=== PATIENT | male | born 1960 | race African-American/Black ===

== ENCOUNTER 2018-06-22 18:43 | Emergency (ER) | payer SELFPAY ==
[~2018-06-22] VITALS: Ht 167.6 cm; Wt 42.6 kg
[2018-06-22] MEDS ORDERED: Ketorolac 30mg Inj IV ONE (19:15)
[2018-06-22 20:00] VITALS: BP 127/84
[2018-06-22 20:09] LABS: ANION GAP 8 mmol/L (5-15); BLOOD UREA NITROGEN 12 mg/dL (7-18); CALCIUM 8.9 MG/DL (8.5-10.1); CARBON DIOXIDE 29 MMOL/L (21-32); CHLORIDE 101 MMOL/L (98-107); CREATININE 0.8 MG/DL (0.55-1.30); POTASSIUM 3.9 MMOL/L (3.5-5.1); SODIUM 138 MMOL/L (136-145)
[2018-06-22 20:13] LABS: ALANINE AMINOTRANSFERASE 21 U/L (12-78); ALBUMIN 3.5 G/DL (3.4-5.0); ALBUMIN/GLOBULIN RATIO 0.7 (1.0-2.7); ALKALINE PHOSPHATASE 68 U/L (46-116); ASPARTATE AMINO TRANSFERASE 17 U/L (15-37); BILIRUBIN,TOTAL 0.9 MG/DL (0.2-1.0)
[2018-06-22 20:43] LABS: EOSINOPHILS % (AUTO) 0.3 % (0.0-3.0); HEMATOCRIT 42.7 % (42.0-52.0); HEMOGLOBIN 13.8 G/DL (14.2-18.0); LYMPHOCYTES % (AUTO) 10.3 % (20.0-45.0); MEAN CORPUSCULAR VOLUME 85 FL (80-99); MONOCYTES % (AUTO) 10.1 % (1.0-10.0); NEUTROPHILS % (AUTO) 78.4 % (45.0-75.0); PLATELET COUNT 153 K/UL (150-450); RED BLOOD COUNT 5.01 M/UL (4.70-6.10); RED CELL DISTRIBUTION WIDTH 11.7 % (11.6-14.8); WHITE BLOOD COUNT 10.4 K/UL (4.8-10.8)
--- NOTE | 2018-06-22 21:29 | Diagnostic Imaging Report ---
EXAM: CT Abdomen and Pelvis With Intravenous Contrast CLINICAL HISTORY: ABD PAIN TECHNIQUE: Axial computed tomography images of the abdomen and pelvis with intravenous contrast. CTDI is 0.15, 7.78 mGy and DLP is 355 mGy-cm. One or more of the following dose reduction techniques were used: automated exposure control, adjustment of the mA and/or kV according to patient size, use of iterative reconstruction technique. COMPARISON: No relevant prior studies available. FINDINGS: Lung bases: Centrilobular emphysema. ABDOMEN: Liver: Subcentimeter hypodensity within the left hepatic lobe, which is nonspecific. Gallbladder and bile ducts: Unremarkable. Pancreas: Unremarkable. Spleen: Unremarkable. Adrenals: Unremarkable. Kidneys and ureters: Probable tiny cysts seen within both kidneys. Stomach and bowel: Moderate amount of stool and gas noted throughout the colon. No bowel obstruction. PELVIS: Appendix: Appendix is unremarkable. Bladder: Unremarkable. Reproductive: Unremarkable as visualized. ABDOMEN and PELVIS: Intraperitoneal space: Unremarkable. Bones/joints: Age-indeterminate compression deformity of L4 with approximately 50% height loss. There is approximately 6 mm of retropulsion or canal which causes moderate stenosis. No dislocation. Soft tissues: Unremarkable. Vasculature: Unremarkable. No abdominal aortic aneurysm. Lymph nodes: Unremarkable. IMPRESSION: 1. Moderate amount of stool and gas noted throughout the colon. No bowel obstruction. 2. Age-indeterminate compression deformity of L4 with approximately 50% height loss. There is approximately 6 mm of retropulsion or canal which causes moderate stenosis.
[2018-06-22 22:00] VITALS: BP 122/80
--- NOTE | 2018-06-22 23:11 | Emergency Room Report ---
History of Present Illness General Chief Complaint: Back Pain-No Injury Present Illness HPI Patient is a 57-year-old male who presented after increased low back pain. Patient been noted be at facility and was having increased difficulty with ambulation. Patient had some prior history of chronic back pain. The patient was noted be markedly poor historian and gives multiple different stories of how back pain began. The patient was noted to have increased had difficulty standing. (Choco Barreto MD) Allergies: Coded Allergies: No Known Allergies (Unverified , 06/22/18) Patient History Past Medical History: see triage record Reviewed Nursing Documentation: PMH: Agreed; PSxH: Agreed (Choco Barreto MD) Review of Systems All Other Systems: limited - bny (Choco Barreto MD) Physical Exam Vital Signs Date Time Temp Pulse Resp B/P (MAP) Pulse Ox O2 Delivery O2 Flow Rate FiO2 06/22/18 18:39 98.0 84 18 127/84 97 Room Air 98.1 Sp02 EP Interpretation: reviewed, normal General Appearance: normal inspection, no apparent distress, alert, GCS 15, Chronically Ill Head: atraumatic ENT: normal ENT inspection, hearing grossly normal, normal voice Neck: normal inspection, full range of motion, supple, no bony tend Respiratory: normal inspection, lungs clear, normal breath sounds, no respiratory distress, no retraction, no wheezing Cardiovascular #1: regular rate, rhythm, no edema Gastrointestinal: normal inspection, normal bowel sounds, non tender, soft, no guarding, no hernia Genitourinary: no CVA tenderness Musculoskeletal: normal inspection, decreased range of motion Neurologic: normal inspection, alert, oriented x3, responsive, silver miner III-XII nml as tested, speech normal Psychiatric: judgement/insight normal Skin: normal inspection, normal color, no rash (Choco Barreto MD) Medical Decision Making Diagnostic Impression: Primary Impression: Closed compression fracture of L4 lumbar vertebra Qualified Codes: S32.040A - Wedge compression fracture of fourth lumbar vertebra, initial encounter for closed fracture Additional Impression: Schizophrenia Qualified Codes: F20.9 - Schizophrenia, unspecified ER Course Patient presented for back pain. Differential diagnosis included but was not limited to herniated disc, cauda equina syndrome, abdominal aortic aneurysm, perforated ulcer, spinal epidural abscess, spinal stenosis, lumbar fracture, metastatic lesion, pyelonephritis. . Labs Test 06/22/18 19:44 White Blood Count 10.4 K/UL (4.8-10.8) Red Blood Count 5.01 M/UL (4.70-6.10) Hemoglobin 13.8 G/DL (14.2-18.0) Hematocrit 42.7 % (42.0-52.0) Mean Corpuscular Volume 85 FL (80-99) Mean Corpuscular Hemoglobin 27.6 PG (27.0-31.0) Mean Corpuscular Hemoglobin Concent 32.3 G/DL (32.0-36.0) Red Cell Distribution Width 11.7 % (11.6-14.8) Platelet Count 153 K/UL (150-450) Mean Platelet Volume 7.0 FL (6.5-10.1) Neutrophils (%) (Auto) 78.4 % (45.0-75.0) Lymphocytes (%) (Auto) 10.3 % (20.0-45.0) Monocytes (%) (Auto) 10.1 % (1.0-10.0) Eosinophils (%) (Auto) 0.3 % (0.0-3.0) Basophils (%) (Auto) 1.0 % (0.0-2.0) Sodium Level 138 MMOL/L (136-145) Potassium Level 3.9 MMOL/L (3.5-5.1) Chloride Level 101 MMOL/L (98-107) Carbon Dioxide Level 29 MMOL/L (21-32) Anion Gap 8 mmol/L (5-15) Blood Urea Nitrogen 12 mg/dL (7-18) Creatinine 0.8 MG/DL (0.55-1.30) Estimat Glomerular Filtration Rate > 60 mL/min (>60) Glucose Level 114 MG/DL (74-106) Calcium Level 8.9 MG/DL (8.5-10.1) Total Bilirubin 0.9 MG/DL (0.2-1.0) Aspartate Amino Transf (AST/SGOT) 17 U/L (15-37) Alanine Aminotransferase (ALT/SGPT) 21 U/L (12-78) Alkaline Phosphatase 68 U/L (46-116) Total Protein 8.6 G/DL (6.4-8.2) Albumin 3.5 G/DL (3.4-5.0) Globulin 5.1 g/dL Albumin/Globulin Ratio 0.7 (1.0-2.7) Lipase 58 U/L (73-393) (Choco Barreto MD) ER Course Please see above note from Dr. Barreto. Patient states he fell from ground level. Apparently not ambulating at [facility]. C/O back pain. Non-focal neuro - LE 5/5 flex and extend of feet. Decreased ankle jerks bilat feet. Sens intact bilat. See CT results. Discussing with [facility] regarding transfer for Spine/Neurosurgery. Not have specialist. Contact [facility] - "capacity". Signed out to Dr. Shaver. (Cuco Che M.D.) ER Course Please refer to the initial note for the initial complaints and presentation After prolonged observation in the emergency room We were able to get a hold of the patient's regional service manager at the facility that he lives in He reports that the patient has problems with methamphetamine He has had multiple hospital visits for the same complaint of having injury to his lower back He also reports that the patient appears to be at his baseline mobility and muscle skeletal movement Patient at this time also has done significantly better and is ambulatory CT imaging did show some nonspecific findings as far as the timing of the acuity Patient is provided with report of the imaging and requires outpatient consult There are no neurological deficits or sensory deficits requiring emergency neurosurgical intervention Labs Test 06/22/18 19:44 06/23/18 10:15 White Blood Count 10.4 K/UL (4.8-10.8) Red Blood Count 5.01 M/UL (4.70-6.10) Hemoglobin 13.8 G/DL (14.2-18.0) Hematocrit 42.7 % (42.0-52.0) Mean Corpuscular Volume 85 FL (80-99) Mean Corpuscular Hemoglobin 27.6 PG (27.0-31.0) Mean Corpuscular Hemoglobin Concent 32.3 G/DL (32.0-36.0) Red Cell Distribution Width 11.7 % (11.6-14.8) Platelet Count 153 K/UL (150-450) Mean Platelet Volume 7.0 FL (6.5-10.1) Neutrophils (%) (Auto) 78.4 % (45.0-75.0) Lymphocytes (%) (Auto) 10.3 % (20.0-45.0) Monocytes (%) (Auto) 10.1 % (1.0-10.0) Eosinophils (%) (Auto) 0.3 % (0.0-3.0) Basophils (%) (Auto) 1.0 % (0.0-2.0) Sodium Level 138 MMOL/L (136-145) Potassium Level 3.9 MMOL/L (3.5-5.1) Chloride Level 101 MMOL/L (98-107) Carbon Dioxide Level 29 MMOL/L (21-32) Anion Gap 8 mmol/L (5-15) Blood Urea Nitrogen 12 mg/dL (7-18) Creatinine 0.8 MG/DL (0.55-1.30) Estimat Glomerular Filtration Rate > 60 mL/min (>60) Glucose Level 114 MG/DL (74-106) Calcium Level 8.9 MG/DL (8.5-10.1) Total Bilirubin 0.9 MG/DL (0.2-1.0) Aspartate Amino Transf (AST/SGOT) 17 U/L (15-37) Alanine Aminotransferase (ALT/SGPT) 21 U/L (12-78) Alkaline Phosphatase 68 U/L (46-116) Total Protein 8.6 G/DL (6.4-8.2) Albumin 3.5 G/DL (3.4-5.0) Globulin 5.1 g/dL Albumin/Globulin Ratio 0.7 (1.0-2.7) Lipase 58 U/L (73-393) Urine Color Brown Urine Appearance Clear Urine pH 6.5 (4.5-8.0) Urine Specific Deane 1.015 (1.005-1.035) Urine Protein 2+ (NEGATIVE) Urine Glucose (UA) Negative (NEGATIVE) Urine Ketones 1+ (NEGATIVE) Urine Blood 2+ (NEGATIVE) Urine Nitrite Negative (NEGATIVE) Urine Bilirubin Negative (NEGATIVE) Urine Urobilinogen 4 MG/DL (0.0-1.0) Urine Leukocyte Esterase 1+ (NEGATIVE) Urine RBC 2-4 /HPF (0 - 0) Urine WBC 0-2 /HPF (0 - 0) Urine Squamous Epithelial Cells None /LPF (NONE/OCC) Urine Bacteria None /HPF (NONE) (Tico Shaver DO) CT/MRI/US Diagnostic Results CT/MRI/US Diagnostic Results : Imaging Test Ordered: abd/pelvis Impression burst fx L4 with 6 mm intrusion to spinal canal (Cuco Che M.D.) CT/MRI/US Diagnostic Results : Impression CT L-spineIMPRESSION: 1. Moderate amount of stool and gas noted throughout the colon. No bowel obstruction. 2. Age-indeterminate compression deformity of L4 with approximately 50% height loss. There is approximately 6 mm of retropulsion or canal which causes moderate stenosis. (Tioc Shaver DO) Last Vital Signs Date Time Temp Pulse Resp B/P (MAP) Pulse Ox O2 Delivery O2 Flow Rate FiO2 06/22/18 19:55 98.0 06/22/18 18:39 84 18 127/84 97 Room Air Status: unchanged (Choco Barreto MD) Last Vital Signs Date Time Temp Pulse Resp B/P (MAP) Pulse Ox O2 Delivery O2 Flow Rate FiO2 06/23/18 07:51 98.8 73 17 110/84 100 Room Air 98.8 Status: improved (Cuco Che M.D.) Status: improved (Tico Shaver DO) Disposition: HOME, SELF-CARE Condition: Improved Scripts Methocarbamol* (ROBAXIN-750*) 750 Mg Tablet 750 MG PO TID, #21 TAB 0 Refills Prov: Tico Shaver DO 06/23/18 Acetaminophen With Codeine (T#3) (TYLENOL #3 TAB*) Y Tab 1 TAB ORAL Q8H PRN for For Pain, #10 TAB Prov: Tico Shaver DO 06/23/18 Ibuprofen* (MOTRIN*) 600 Mg Tablet 600 MG ORAL Q8H PRN for For Pain, #20 TAB 0 Refills Prov: Tico Shaver DO 06/23/18 Referrals: NOT CHOSEN IPA/,REFERRING (PCP) Additional Instructions: Patient is provided with the discharge instructions notified to follow up with primary doctor in the next 2-3 days otherwise return to the er with any worsening symptoms. Please note that this report is being documented using [employer] technology. This can lead to erroneous entry secondary to incorrect interpretation by the dictating instrument. Choco Barreto MD Jun 22, 2018 23:11 Cuco Che M.D. Jun 22, 2018 23:23 Tico Shaver DO Jun 23, 2018 12:01
[2018-06-23] VITALS: BP 119/79
[2018-06-23 02:00] VITALS: BP 112/69
[2018-06-23] MEDS: Sodium Chloride 500ML 550 ML IV SCH ×2 (04:27→08:21)
[2018-06-23 04:45] VITALS: BP 113/71
[2018-06-23 07:51] VITALS: BP 110/84
[2018-06-23 10:58] LABS: APPEARANCE,URINE CLEAR; BILIRUBIN, URINE NEGATIVE (NEGATIVE); COLOR,URINE BROWN; GLUCOSE, URINE (UA) NEGATIVE (NEGATIVE); KETONES,URINE 1+ (NEGATIVE); LEUKOCYTE ESTERASE ,URINE 1+ (NEGATIVE); NITRITE,URINE NEGATIVE (NEGATIVE); PH,URINE 6.5 (4.5-8.0); PROTEIN,URINE 2+ (NEGATIVE); UROBILINOGEN,URINE 4 MG/DL (0.0-1.0)
[2018-06-23] MEDS ORDERED: ACETAMINOPHEN-1 EAC1 ORAL (11:03)
[2018-06-23] MEDS ORDERED: IBUPROFEN600 MG ORAL (11:03)
[2018-06-23] MEDS ORDERED: ROBAXIN-750750 MG PO (11:03)
[2018-06-23 11:36] VITALS: BP 127/76
== END 2018-06-23 11:36 | disposition home or self-care (01) ==
LOC: EDBD 18:43 → EMR 21:50
DX: S32.040A Wedge compression fracture of fourth lumbar vertebra, initial encounter for closed fracture (principal); X58.XXXA Exposure to other specified factors, initial encounter; Y92.89 Other specified places as the place of occurrence of the external cause; F20.9 Schizophrenia, unspecified
CPT/HCPCS: 36415; 74177; 80053; 81003; 83690; 85025; 96374; 99284; J1885; Q9967